=== PATIENT | female | born 1965 | race American Indian/Alaskan Native ===

== ENCOUNTER 2019-05-30 15:41 | Outpatient (CLI) | payer OTHER ==
--- NOTE | 2019-05-31 10:05 | Mammography Report ---
DIGITAL SCREENING MAMMOGRAM WITH CAD, 05/30/2019 INDICATION: Routine screening mammography. TECHNIQUE: Digital bilateral 2D mammography was obtained in the craniocaudal and mediolateral obliq ue projections. This examination was interpreted with the benefit of Computer-Aided Detection analysi s. COMPARISON: Not available FINDINGS: Breast Density: There are scattered areas of fibroglandular density. There is no evidence of dominant mass, suspicious calcifications or architectural distortion in eithe r breast. Small lymph node is seen on the right. IMPRESSION: BI-RADS Category 2: Benign. No mammographic evidence of malignancy. Recommend routine screening ma mmography in one year. A "normal" or negative report should not discourage follow up or biopsy of a clinically significant f inding. A written summary of these findings will be mailed to the patient. The patient will be entered into a mammography reporting system which will generate a reminder letter for the patient's next appointmen t at the appropriate interval. The [employer] recommends yearly mammograms starting at age 40 and continuing as l georgina as a woman is in good health. Breast MRI is recommended for women with an approximate 20-25% or greater lifetime risk of breast cancer, including women with a strong family history of breast or ova mauricio cancer or who have been treated for Hodgkin's disease. Signer Name: Cristo Crawley MD Signed: 05/31/2019 7:49 AM Workstation Name: [id number]
== END 2019-05-30 15:42 | disposition home or self-care (01) ==
LOC: SPVWC 15:41
PROVIDERS: ATTEND Internal Medicine
DX: Z12.31 Encounter for screening mammogram for malignant neoplasm of breast (principal)
CPT/HCPCS: 77067

== ENCOUNTER 2021-08-14 14:26 | Outpatient (CLI) | payer OTHER ==
--- NOTE | 2021-08-14 16:14 | Mammography Report ---
DIGITAL SCREENING MAMMOGRAM WITH CAD, 08/14/2021 CLINICAL INFORMATION / INDICATION: Routine screening mammography. SCREENING MAMMOGRAM TECHNIQUE: Digital bilateral 2D mammography was obtained in the craniocaudal and mediolateral obliqu e projections. This examination was interpreted with the benefit of Computer-Aided Detection analysis . COMPARISON: 05/30/2019 and 06/05/2020. FINDINGS: Breast Density: There are scattered areas of fibroglandular density. No dominant mass, suspicious calcifications, or architectural distortion in the left breast. There is a new or enlarging 7 mm nodule in the right lower inner quadrant in the anterior depth near the 5:00 to 5:30 position 2 to 3 cm from the nipple. IMPRESSION: Small nodule in the right lower inner quadrant. Right breast ultrasound is recommended fo r initial evaluation. Spot compression views could be performed if necessary. Follow up recommendation: Ultrasound BI-RADS Category 0: Incomplete. Needs additional imaging evaluation and/or prior mammograms for maria del rosario augustine. A "normal" or negative report should not discourage follow up or biopsy of a clinically significant f inding. A written summary of these findings will be mailed to the patient. The patient will be entered into a mammography reporting system which will generate a reminder letter for the patient's next appointmen t at the appropriate interval. The [employer] recommends yearly mammograms starting at age 40 and continuing as l georgina as a woman is in good health. Breast MRI is recommended for women with an approximate 20-25% or greater lifetime risk of breast cancer, including women with a strong family history of breast or ova mauricio cancer or who have been treated for Hodgkin's disease. Signer Name: Andrea Woody MD Signed: 08/14/2021 4:10 PM Workstation Name: [id number]
== END 2021-08-14 14:27 | disposition home or self-care (01) ==
LOC: MAMMO 14:26
PROVIDERS: ATTEND Internal Medicine
DX: Z12.31 Encounter for screening mammogram for malignant neoplasm of breast (principal); N63.14 Unspecified lump in the right breast, lower inner quadrant
CPT/HCPCS: 77067

== ENCOUNTER 2021-10-23 09:40 | Outpatient (CLI) | payer OTHER ==
--- NOTE | 2021-10-23 11:56 | Mammography Report ---
RIGHT DIGITAL DIAGNOSTIC MAMMOGRAM WITH CAD CONVENTIONAL, 10/23/2021 RIGHT LIMITED BREAST ULTRASOUND CLINICAL INFORMATION / INDICATION: Patient presents as a callback from screening mammogram for furthe r evaluation of a nodular density in the right breast. TECHNIQUE: Digital right mammographic imaging was performed. Spot compression views were obtained. Li mited ultrasound was performed. This examination was interpreted with the benefit of Computer-Aided D etection (CAD) analysis. COMPARISON: Prior mammogram 08/14/2021 FINDINGS: Breast Density: There are scattered areas of fibroglandular density. MAMMOGRAPHIC FINDINGS: Spot compression views reveal a persistent 6 mm lobulated mass in the medial r ight breast, anterior to middle depth located approximately 3 cm from the nipple. This is best seen o n the cc view, but likely localizes near the 2:00 position on the true lateral view. Targeted ultraso und was performed for further evaluation. ULTRASOUND FINDINGS: Targeted ultrasound evaluation was performed of the area of interest. Likely c orresponding with the nodular density seen mammographically, there is an oval hypoechoic mass with in distinct margins in the right breast 2:00 position located 2 cm from the nipple measuring up to 5 mm. No internal vascularity is demonstrated. IMPRESSION: 1. A small hypoechoic mass corresponds with the mammographic finding. Because this is new/increasing, this is considered suspicious for malignancy, and ultrasound-guided biopsy is recommended. Recommend postbiopsy mammogram to ensure that the mammographic and sonographic findings correspond. Follow up recommendation: Biopsy BI-RADS Category 4: SUSPICIOUS FOR MALIGNANCY. A "normal" or negative report should not discourage follow up or biopsy of a clinically significant f inding. A written summary of these findings will be mailed to the patient. The patient will be entered into a mammography reporting system which will generate a reminder letter for the patient's next appointmen t at the appropriate interval. According to the [employer], yearly mammograms are recommended starting at age 40 and continuing as long as a woman is in good health. Breast MRI is recommended for women with an brandon roximately 20-25% or greater lifetime risk of breast cancer, including women with a strong family his tory of breast or ovarian cancer and women who have been treated for Hodgkin's disease. Signer Name: Linda Jay MD Signed: 10/23/2021 11:51 AM Workstation Name: [id number]
== END 2021-10-23 09:41 | disposition home or self-care (01) ==
LOC: MAMMO 09:40
PROVIDERS: ATTEND Internal Medicine
DX: N63.12 Unspecified lump in the right breast, upper inner quadrant (principal)

== ENCOUNTER 2021-11-20 12:32 | Outpatient (CLI) | payer OTHER ==
--- NOTE | 2021-11-20 15:02 | Ultrasound Report ---
ULTRASOUND GUIDED RIGHT BREAST BIOPSY, 11/20/2021 Right DIAGNOSTIC MAMMOGRAM CLINICAL INFORMATION / INDICATION: R92.8. Right breast workup shows a tiny probable cyst with a singl e thin septation, here for biopsy COMPARISON: Mammogram from 08/14/2021 as well as diagnostic workup including ultrasound from 10/23/2021 PROCEDURE: Risks, benefits, and indications to the procedure were discussed with the patient in detail, includin g bleeding, infection, hematoma formation, and inadequate tissue sampling. The patient agreed to proc eed with both verbal and written consent. A timeout procedure was performed with two patient identifi ers. The breast was prepped and draped in the usual sterile fashion. Lidocaine 1% was used for local anest hesia. Under direct ultrasound guidance, 1 14 gauge core sample was obtained of the tiny right breast cyst which contained a single septation. A biopsy marker was then placed. Biopsy device was removed and hemostasis achieved with manual pressure. A sterile dressing was applied to the skin. The patient tolerated the procedure without difficulty. No complications were encountered. Postbiopsy instructions were discussed with the patient and given in writing. Specimens were sent to pathology. The patient was then sent for a confirmatory mammogram to demonstrate adequate clip positioning in th e area in question. IMPRESSION: 1. Technically successful ultrasound guided breast breast biopsy. 2. Satisfactory positioning of the biopsy clip on the post procedure mammogram. Biopsy results are pending and will be reported in an addendum. Signer Name: Ron Godoy MD Signed: 11/20/2021 2:57 PM Workstation Name: [id number]
== END 2021-11-20 12:33 | disposition home or self-care (01) ==
LOC: US 12:32
PROVIDERS: ATTEND Internal Medicine
DX: R92.8 Other abnormal and inconclusive findings on diagnostic imaging of breast (principal); N63.12 Unspecified lump in the right breast, upper inner quadrant; N64.89 Other specified disorders of breast
CPT/HCPCS: 88305